=== PATIENT | male | born 1995 | race Caucasian/White ===

== ENCOUNTER 2020-05-29 23:11 | Emergency (ER) | payer SELFPAY ==
[~2020-05-29] VITALS: Ht 185.4 cm; Wt 97.5 kg
--- NOTE | 2020-05-29 23:28 | NUR ---
PATIENT CAME TO ER BED 2 C/O REDNESS AND SWELLING OF THE THROAT. PATIENT STATES HE TOOK 2 PILLS OF BENADRYL PRIOR TO ARRIVAL. PATIENT ALSO STATES THAT HE HAD TAKEN SOME CARAMEL CORN WHICH HAD PEANUTS IN THEM THAT CAUSED HIM TO HAVE SOB. PATIENT IS AAOX4. NO OBSTRUCTION OF AIRWAY. PATIENT IS BREATHING EVENLY AND UNLABORED ON ROOM AIR. C/O OF A LITTLE BIT OF SHORTNESS OF BREATH. CONNECTED TO THE MONITOR.
--- NOTE | 2020-05-29 23:31 | NUR ---
md at bedside for evaluation
[2020-05-29] MEDS ORDERED: diphenhydrAMINE HCL 50 MG/ML VIAL ONE (23:36)
[2020-05-29] MEDS ORDERED: DEXAMETHASONE SOD PHOSPHATE 10 MG/ML VIAL ONE (23:36)
[2020-05-29] MEDS ORDERED: FAMOTIDINE (20 MG) 20 MG TABLET ONE (23:36)
[2020-05-30] MEDS ORDERED: DEXAMETHASONE SOD PHOSPHATE 4 MG/ML VIAL IM ONE
[2020-05-30] MEDS ORDERED: diphenhydrAMINE HCL 50 MG/ML VIAL IM ONE
[2020-05-30] MEDS ORDERED: FAMOTIDINE (20 MG) 20 MG TABLET PO ONE
[2020-05-30 00:28] VITALS: BP 129/74
--- NOTE | 2020-05-30 00:28 | NUR ---
Patient discharged to home in stable condition. Written and verbal after care instructions given. Patient verbalizes understanding of instruction.
== END 2020-05-30 00:28 | disposition home or self-care (01) ==
LOC: ER 23:17
DX: T78.1XXA Other adverse food reactions, not elsewhere classified, initial encounter (principal); X58.XXXA Exposure to other specified factors, initial encounter
CPT/HCPCS: 96372 ×2; 99284; J1100; J1200